=== PATIENT | male | born 1980 | race Caucasian/White ===

== ENCOUNTER → 2024-04-11 | Outpatient (CLI) | payer SELFPAY ==
--- NOTE | 2024-04-11 09:00 | RAD_ITS ---
STUDY: X-RAY - CERVICAL SPINE REASON FOR EXAM: Male, 43 years old. Neck pain. TECHNIQUE: 5 view(s) of the cervical spine were obtained. COMPARISON: None FINDINGS: Normal anterior atlantoaxial articulation. Normal odontoid process. Reversal of the normal lordotic curve, likely positional. Diffuse mild uncovertebral and facet sclerosis. 3 mm of anterolisthesis of C6 on C5 and 2 mm of anterolisthesis of C5 on C4. Intervertebral disc space narrowing at C4-5 and C5-6 with osteophytes most marked at C5-6. Anterior bony neural foraminal encroachment at C5-6. Normal soft tissues. RAD/Cerv Spine 4 or 5 Views IMPRESSION: Lower cervical spondylosis most marked at C4-5 and C5-6 with anterior bony neural foraminal encroachment at C5-6. Electronically Signed: Dre Quinones MD at 9:49 EDT ,
== END | disposition home or self-care (01) ==
PROVIDERS: PCP Family Medicine; Referring Provider Chiropractor Orthopedic; Visit Provider Chiropractor Orthopedic
DX: M99.01 Segmental and somatic dysfunction of cervical region (principal); M54.2 Cervicalgia
CPT/HCPCS: 72050